=== PATIENT | male | born 1965 | race Caucasian/White ===

== ENCOUNTER 2017-04-21 15:07 | Emergency (ER) | payer SELFPAY ==
[2006-12-21 21:09] VITALS: BP 162/103
[~2017-04-21] VITALS: Ht 182.9 cm; Wt 79.5 kg
[~2017-04-21 15:07] MED LIST: ACCUPRIL5MGTAB; ASPIRIN 81M81 MG/TA2 PO; MOTRIN 800800 MG/TAB PO; NITROSTAT0.4 MG/TAB SL; PROTONIX20 MG PO; TOPROL XL 25MG25 MG PO; ZANTAC 150MG T150 MG PO; ZANTAC 7575 MG PO; ZESTRIL2.5 MG PO
[2017-04-21 15:09] VITALS: TEMP 98.1
[2017-04-21 15:50] LABS: BASO % 0.6 % (0.0-2.0); EOS % 0.6 % (0-4.0); GRAN # 3.2 (1.4-6.5); HEMATOCRIT 43.3 % (42.0-52.0); LYMPH % 21.3 % (20.0-51.0); MEAN CELL VOLUME 88 fl (80.0-100.0); MEAN CORPUSCULAR HEMOGLOBIN 31 pg (27.0-31.0); MEAN CORPUSCULAR HGB CONC 35 g/dl (33.0-37.0); MONO # 0.4 (0.1-0.6); MONO % 7.9 % (1.7-9.3); PLATELET COUNT 217 K/mm3 (130-400); REDCELL DISTRIBUTION WIDTH-CV 12.9 % (11.5-14.5); WHITE BLOOD COUNT 4.7 K/mm3 (4.8-10.8)
[2017-04-21 16:12] LABS: ADJUSTED CALCIUM 9.2 mg/dL (8.4-10.2); ALANINE AMINOTRANSFERASE 40 U/L (21-72); ALBUMIN 4.7 gm/dL (3.5-5.0); ALKALINE PHOSPHATASE 68 U/L (50-136); ANION GAP 16 mmol/L (7-16); BILIRUBIN,TOTAL 0.7 mg/dL (0.0-1.0); BLOOD UREA NITROGEN 9 mg/dL (9-20); CALCIUM 9.8 mg/dL (8.4-10.2); CARBON DIOXIDE 23 mmol/L (22-30); CHLORIDE 99 mmol/L (98-107); CREATININE, serum 1.17 mg/dL (0.66-1.25); GLUCOSE 110 mg/dL (74-106); POTASSIUM 3.8 mmol/L (3.4-5.0); SODIUM 138 mmol/L (137-145); TOTAL PROTEIN 7.7 gm/dL (6.4-8.2)
[2017-04-21 16:28] LABS: PROLACTIN 31.9 ng/mL (3.7-17.9)
[2017-04-21] MEDS ORDERED: PRINZIDE 12.5 M1 TAB PO (17:09)
[2017-04-21 17:22] VITALS: BP 173/110; PULSE 76
[2017-04-22] MEDS ORDERED: ZOFRAN8 MG PO (14:18)
[2017-04-22] MEDS ORDERED: ULTRAM 50MG TAB50 MG PO (14:27)
== END 2017-04-21 17:25 | disposition home or self-care (01) ==
LOC: COL.ER 15:07
PROVIDERS: Emergency Medicine
DX: F10.230 Alcohol dependence with withdrawal, uncomplicated (principal); R56.9 Unspecified convulsions; I10 Essential (primary) hypertension
CPT/HCPCS: J7030

== ENCOUNTER 2017-04-22 12:24 | Emergency (ER) | payer SELFPAY ==
[2006-12-21 21:09] VITALS: BP 162/103
[~2017-04-22] VITALS: Ht 182.9 cm; Wt 79.5 kg
[~2017-04-22 12:24] MED LIST changes: +PRINZIDE 12.5 M1 TAB PO
[2017-04-22 12:31] VITALS: BP 141/86; TEMP 98.8
[2017-04-22 13:27] LABS: PROLACTIN 14.2 ng/mL (3.7-17.9)
[2017-04-22 13:59] LABS: TROPONIN-I 0.031 ng/mL (0.000-0.034)
[2017-04-22] MEDS ORDERED: ZOFRAN8 MG PO (14:18)
[2017-04-22] MEDS ORDERED: ULTRAM 50MG TAB50 MG PO (14:27)
[2017-04-22 14:36] VITALS: PULSE 81
== END 2017-04-22 14:36 | disposition home or self-care (01) ==
LOC: COL.ER 12:24
PROVIDERS: Emergency Medicine
DX: S09.90XA Unspecified injury of head, initial encounter (principal); R41.0 Disorientation, unspecified; R55 Syncope and collapse; I10 Essential (primary) hypertension; K21.9 Gastro-esophageal reflux disease without esophagitis; Z87.891 Personal history of nicotine dependence; W19.XXXA Unspecified fall, initial encounter; Y92.59 Other trade areas as the place of occurrence of the external cause

== ENCOUNTER 2017-05-28 09:24 | Emergency (ER) | payer SELFPAY ==
[~2017-05-28] VITALS: Ht 180.3 cm; Wt 81.8 kg
[~2017-05-28 09:24] MED LIST changes: +ULTRAM 50MG TAB50 MG PO; +ZOFRAN8 MG PO
[2017-05-28 09:25] VITALS: TEMP 97.5
[2017-05-28 09:54] LABS: BASO % 0.7 % (0.0-2.0); EOS % 0.9 % (0-4.0); GRAN # 3.6 (1.4-6.5); GRAN % 82.9 % (42.2-75.2); HEMATOCRIT 46.4 % (42.0-52.0); HEMOGLOBIN 15.6 g/dl (13.5-18.0); LYMPH # 0.4 (1.2-3.4); LYMPH % 9.7 % (20.0-51.0); MEAN CELL VOLUME 91 fl (80.0-100.0); MEAN CORPUSCULAR HEMOGLOBIN 31 pg (27.0-31.0); MEAN CORPUSCULAR HGB CONC 34 g/dl (33.0-37.0); MONO # 0.2 (0.1-0.6); MONO % 4.6 % (1.7-9.3); PLATELET COUNT 194 K/mm3 (130-400); RED BLOOD COUNT 5.11 M/mm3 (4.20-5.60); WHITE BLOOD COUNT 4.3 K/mm3 (4.8-10.8)
[2017-05-28 10:08] LABS: ALANINE AMINOTRANSFERASE 29 U/L (21-72); ALBUMIN 4.5 gm/dL (3.5-5.0); ALKALINE PHOSPHATASE 56 U/L (50-136); ANION GAP 14 mmol/L (7-16); BILIRUBIN,TOTAL 0.7 mg/dL (0.0-1.0); BLOOD UREA NITROGEN 12 mg/dL (9-20); CALCIUM 9.4 mg/dL (8.4-10.2); CARBON DIOXIDE 24 mmol/L (22-30); CHLORIDE 102 mmol/L (98-107); GLUCOSE 98 mg/dL (74-106); POTASSIUM 4.5 mmol/L (3.4-5.0); SODIUM 140 mmol/L (137-145); TOTAL PROTEIN 7.5 gm/dL (6.4-8.2)
[2017-05-28 10:24] LABS: PROLACTIN 18.4 ng/mL (3.7-17.9)
[2017-05-28] MEDS ORDERED: KEPPRA 500MG500 MG PO (10:48)
[2017-05-28 11:03] LABS: AMPHETAMINE URINE NEGATIVE; BARBITURATES URINE NEGATIVE; BENZODIAZEPINES URINE NEGATIVE; BUPRENORPHINE URINE NEGATIVE; METHADONE URINE NEGATIVE; OPIATES URINE NEGATIVE; OXYCODONE URINE NEGATIVE; PHENCYCLIDINE URINE NEGATIVE; PROPOXYPHENE URINE NEGATIVE; THC CANNABINOIDS URINE POSITIVE
[2017-05-28 11:34] VITALS: BP 164/102; PULSE 70
== END 2017-05-28 11:34 | disposition home or self-care (01) ==
LOC: COL.ER 09:24
PROVIDERS: Emergency Medicine
DX: G40.909 Epilepsy, unspecified, not intractable, without status epilepticus (principal); F10.10 Alcohol abuse, uncomplicated; Y90.0 Blood alcohol level of less than 20 mg/100 ml
CPT/HCPCS: J1953; J7030

== ENCOUNTER 2018-01-05 13:00 | Emergency (ER) | payer SELFPAY ==
[2006-12-21 21:09] VITALS: BP 162/103
[~2018-01-05] VITALS: Ht 180.3 cm; Wt 79.5 kg
[~2018-01-05 13:00] MED LIST changes: +KEPPRA 500MG500 MG PO
[2018-01-05 13:02] VITALS: TEMP 98.4
[2018-01-05 13:18] LABS: BASO % 0.7 % (0.0-2.0); EOS % 0.7 % (0-4.0); GRAN # 3.8 (1.4-6.5); GRAN % 67.4 % (42.2-75.2); HEMATOCRIT 42.5 % (42.0-52.0); HEMOGLOBIN 14.7 g/dl (13.5-18.0); LYMPH # 1.2 (1.2-3.4); MEAN CELL VOLUME 87 fl (80.0-100.0); MEAN CORPUSCULAR HEMOGLOBIN 30 pg (27.0-31.0); MEAN CORPUSCULAR HGB CONC 35 g/dl (33.0-37.0); MEAN PLATELET VOLUME 9.1 fl (7.4-10.4); MONO # 0.5 (0.1-0.6); MONO % 8.7 % (1.7-9.3); PLATELET COUNT 234 K/mm3 (130-400); RED BLOOD COUNT 4.91 M/mm3 (4.20-5.60); REDCELL DISTRIBUTION WIDTH-CV 13.1 % (11.5-14.5)
[2018-01-05] MEDS ORDERED: PRINIVIL20 MG PO (13:18)
[2018-01-05 13:27] LABS: ALANINE AMINOTRANSFERASE 24 U/L (21-72); ALBUMIN 4.6 gm/dL (3.5-5.0); ALKALINE PHOSPHATASE 67 U/L (50-136); ANION GAP 17 mmol/L (7-16); AST,SGOT 24 U/L (15-37); BILIRUBIN,TOTAL 0.7 mg/dL (0.0-1.0); BLOOD UREA NITROGEN 11 mg/dL (9-20); CALCIUM 9.5 mg/dL (8.4-10.2); CARBON DIOXIDE 24 mmol/L (22-30); CHLORIDE 92 mmol/L (98-107); GLUCOSE 120 mg/dL (74-106); LIPASE 108 U/L (23-300); POTASSIUM 3.6 mmol/L (3.4-5.0); SODIUM 134 mmol/L (137-145); TOTAL PROTEIN 8.2 gm/dL (6.4-8.2)
[2018-01-05 13:29] LABS: ALCOHOL(ethanol),MEDICAL < 10 mg/dL
[2018-01-05] MEDS ORDERED: LIBRIUM 25M25 MG/CAP PO (15:23)
[2018-01-05 16:20] VITALS: BP 133/89; PULSE 99
== END 2018-01-05 16:23 | disposition home or self-care (01) ==
LOC: COL.ER 13:00
PROVIDERS: Emergency Medicine
DX: S09.90XA Unspecified injury of head, initial encounter (principal); F10.239 Alcohol dependence with withdrawal, unspecified; R56.9 Unspecified convulsions; X58.XXXA Exposure to other specified factors, initial encounter
CPT/HCPCS: J2060

== ENCOUNTER 2018-05-18 08:21 | Emergency (ER) | payer BC ==
[2006-12-21 21:09] VITALS: BP 162/103
[~2018-05-18] VITALS: Ht 180.3 cm; Wt 75.9 kg
[~2018-05-18 08:21] MED LIST changes: +LIBRIUM 25M25 MG/CAP PO; +PRINIVIL20 MG PO
[2018-05-18 08:25] VITALS: TEMP 99
[2018-05-18 08:51] LABS: HEMATOCRIT 43.2 % (42.0-52.0); HEMOGLOBIN 15.1 g/dl (13.5-18.0); MEAN CELL VOLUME 86 fl (80.0-100.0); MEAN CORPUSCULAR HEMOGLOBIN 30 pg (27.0-31.0); MEAN CORPUSCULAR HGB CONC 35 g/dl (33.0-37.0); MEAN PLATELET VOLUME 9.6 fl (7.4-10.4); PLATELET COUNT 256 K/mm3 (130-400); RED BLOOD COUNT 5.04 M/mm3 (4.20-5.60); REDCELL DISTRIBUTION WIDTH-CV 12.7 % (11.5-14.5)
[2018-05-18 09:04] LABS: ALANINE AMINOTRANSFERASE 23 U/L (21-72); ALBUMIN 4.7 gm/dL (3.5-5.0); ALKALINE PHOSPHATASE 53 U/L (50-136); ANION GAP 12 mmol/L (7-16); AST,SGOT 28 U/L (15-37); BILIRUBIN,TOTAL 0.5 mg/dL (0.0-1.0); BLOOD UREA NITROGEN 10 mg/dL (9-20); CALCIUM 9.1 mg/dL (8.4-10.2); CARBON DIOXIDE 26 mmol/L (22-30); CHLORIDE 94 mmol/L (98-107); CREATININE, serum 1.04 mg/dL (0.66-1.25); GLUCOSE 104 mg/dL (74-106); LIPASE 94 U/L (23-300); POTASSIUM 4.6 mmol/L (3.4-5.0); SODIUM 132 mmol/L (137-145); TOTAL PROTEIN 8.2 gm/dL (6.4-8.2)
[2018-05-18 09:07] LABS: ALCOHOL(ethanol),MEDICAL < 10 mg/dL; C-REACTIVE PROTEIN < 0.5 mg/dL (0.0-0.9)
[2018-05-18 09:18] LABS: PROLACTIN 15.2 ng/mL (3.7-17.9)
[2018-05-18] MEDS ORDERED: PRINIVIL10 MG PO (09:22)
[2018-05-18] MEDS ORDERED: ATIVAN 1MG T1 MG/TAB PO (09:45)
[2018-05-18 10:04] LABS: BAND 3 % (0-10); BASOPHIL 1 % (0-2); LYMPHOCYTE 30 % (20.0-51.0); NEUTROPHILS 61 % (42.0-75.2); PLATELET ESTIMATE NORMAL (NORMAL)
[2018-05-18 10:08] VITALS: BP 134/84; PULSE 104
== END 2018-05-18 10:13 | disposition home or self-care (01) ==
LOC: COL.ER 08:21
PROVIDERS: Family Medicine
DX: G40.909 Epilepsy, unspecified, not intractable, without status epilepticus (principal); F10.239 Alcohol dependence with withdrawal, unspecified
CPT/HCPCS: J2060; J2405; J7030